=== PATIENT | female | born 1995 | race Caucasian/White ===

== ENCOUNTER 2017-10-09 08:22 | Inpatient (IN) | payer BC ==
[2017-10-09] MEDS ORDERED: RINGERS SOLUTION,LACTATED 1,000 ML IV PRN ×2 (08:39→08:47)
[2017-10-09] MEDS ORDERED: OXYTOCIN/NORMAL SALINE 20 UNIT/1,000 ML RTUINJ IV PRN ×3 (08:39→15:49)
[2017-10-09] MEDS ORDERED: RINGERS SOLUTION,LACTATED 300 ML IV ONE ×2 (08:39→08:47)
[2017-10-09 09:08] LABS: APPEARANCE,URINE TURBID; BILIRUBIN,URINE NEGATIVE (NEGATIVE); COLOR,URINE AMBER; GLUCOSE, URINE NEGATIVE (NEGATIVE); KETONES,URINE NEGATIVE (NEGATIVE); LEUKOCYTE ESTERASE,URINE LARGE (NEGATIVE); NITRITE,URINE NEGATIVE (NEGATIVE); PROTEIN,URINE 30 mg/dL (NEGATIVE); URINE SPECIFIC GRAVITY 1.023; UROBILINOGEN,URINE NEGATIVE mg/dL (<2.0)
[2017-10-09] MEDS ORDERED: OXYTOCIN/NORMAL SALINE 20 UNIT/1,000 ML RTUINJ ONE ×2 (09:11→09:58)
[2017-10-09 09:25] LABS: URINE AMPHETAMINES SCREEN NEGATIVE; URINE BARBITURATES SCREEN NEGATIVE; URINE BENZODIAZEPINES SCREEN NEGATIVE; URINE COCAINE SCREEN NEGATIVE; URINE MARIJUANA (THC) SCREEN NEGATIVE; URINE METHADONE SCREEN NEGATIVE; URINE PHENCYCLIDINE SCREEN NEGATIVE
[2017-10-09 09:29] LABS: ABSOLUTE BASOPHILS # (AUTO) 0.1 10^3/uL (0.0-0.2); ABSOLUTE EOSINOPHILS # (AUTO) 0.1 10^3/uL (0.0-0.6); ABSOLUTE LYMPHOCYTES (AUTO) 2.3 10^3/uL (0.5-4.7); ABSOLUTE MONOCYTES (AUTO) 0.7 10^3/uL (0.1-1.4); ABSOLUTE NEUT (AUTO) 6.3 10^3/uL (1.7-8.2); BASOPHILS % (AUTO) 0.9 % (0-2); EOSINOPHILS % (AUTO) 0.8 % (0-6); HEMATOCRIT 38.7 % (36.0-47.0); HEMOGLOBIN 13.4 g/dL (12.0-15.5); LYMPHOCYTES % (AUTO) 24.2 % (13-45); MEAN CORPUSCULAR HEMOGLOBIN 28.8 pg (27.0-33.4); MEAN CORPUSCULAR HGB CONC 34.6 g/dL (32.0-36.0); MEAN CORPUSCULAR VOLUME 83 fl (80-97); MONOCYTES % (AUTO) 7.9 % (3-13); PLATELET COUNT 249 10^3/uL (150-450); RED BLOOD COUNT 4.66 10^6/uL (3.72-5.28); SEGMENTED NEUTROPHILS % (AUTO) 66.2 % (42-78); TOTAL CELLS COUNTED % (AUTO) 100 %; WHITE BLOOD COUNT 9.5 10^3/uL (4.0-10.5)
[2017-10-09] MEDS ORDERED: EPHEDRINE SULFATE INJ 50 MG/1 ML AMPULE ONE (13:13)
[2017-10-09] MEDS ORDERED: FENTANYL CITRATE INJ/PF 100 MCG/2 ML AMPUL ONE (13:13)
[2017-10-09] MEDS ORDERED: PHENYLEPHRINE HCL INJ/PF 10 MG/1 ML SDV ONE (13:13)
[2017-10-09] MEDS ORDERED: BUPIVACAINE HCL 0.25 % INJ/PF (2.5 MG/1 ML) 30 ML VIAL ONE (13:14)
[2017-10-09] MEDS ORDERED: FENTANYL/BUPIVACAINE/NS/PF 200 MCG/100 ML RTUINJ EPI ONE (13:14)
--- NOTE | 2017-10-09 13:21 | L&D Progress Notes ---
PROGRESS NOTES Datetime Report Generated by CPN: 10/09/2017 13:20 PROGRESS NOTE Impression Other: IOL-stable Procedures: Artificial ROM; Sterile Vag Exam Plan: Continue Present Management Informed Consent Obtained: Induction of Labor; Risks, Benefits and Alternatives Discussed Informed Consent Obtained: Vaginal Delivery; Induction of Labor; Risks, Benefits and Alternatives Discussed Vital Signs : Reviewed; Within Normal Limits Comment: S: reports increased pain with contractions and ready for epidural O: pit @ 12mu/min, VSS, cervix as stated A: IUP @ 40w4- stable, AROM-scant clear fluid tolerated well P: epidural bolus started, reassess as clinically indicated, continue IOL. VAGINAL EXAM Dilatation: 5 Dilatation: 3 Effacement: 90 Effacement: 80 Station: 0 Station: -1 Contractions: 2-3 Contractions: none at admission MEMBRANES Membranes: Ruptured Membranes: Intact FETUS A FHR - Baseline: 125 Monitoring: External US Variability: Moderate 6-25bpm FHR Category: Category I Presentation: Vertex SIGNATURE SIGNATURE: [id number] Assignment: Jacy Scott MD Signature: with User ID: Byron : with User ID: Byron
[2017-10-09] MEDS ORDERED: LIDOCAINE 1% INJ-PF (10 MG/ML) 30 ML SDV ONE (13:42)
[2017-10-09] MEDS ORDERED: LIDOCAINE 2%/EPINEPHRINE INJ 20 ML VIAL ONE (14:02)
[2017-10-09] MEDS ORDERED: MISOPROSTOL 0.2 MG TABLET ONE (15:16)
[2017-10-09] MEDS ORDERED: MISOPROSTOL 0.2 MG TABLET PR PRN (15:49)
[2017-10-09] MEDS ORDERED: DIBUCAINE 1% OINTMENT 28 GM TP PRN (15:49)
[2017-10-09] MEDS ORDERED: PROMETHAZINE HCL INJ 25 MG/1 ML VIAL IV PRN (15:49)
[2017-10-09] MEDS ORDERED: DIPHENHYDRAMINE HCL 25 MG CAPSULE PO PRN (15:49)
[2017-10-09] MEDS ORDERED: ACETAMINOPHEN 650 MG SUPP.RECT PR PRN (15:49)
[2017-10-09] MEDS ORDERED: MAGNESIUM HYDROXIDE SUSP 30 ML UDCUP PO PRN (15:49)
[2017-10-09] MEDS ORDERED: MEASLES,MUMPS&RUBELLA VACC/PF 0.5 ML VIAL SUBCUT PRN (15:49)
[2017-10-09] MEDS ORDERED: GLYCERIN/WITCH HAZEL LEAF 1 EACH MED..PAD TP PRN (15:49)
[2017-10-09] MEDS ORDERED: ACETAMINOPHEN WITH CODEINE #3 TABLET PO PRN (15:49)
[2017-10-09] MEDS ORDERED: DIPH/PERTUSS(ACELL)/TETANUS VAC/PF 0.5 ML SYR (>=10YO) IM PRN (15:49)
[2017-10-09] MEDS ORDERED: BENZOCAINE/MENTHOL AEROSOL SPRAY 56 ML TOP PRN (15:49)
[2017-10-09] MEDS ORDERED: PSEUDOEPHEDRINE HCL 30 MG TABLET PO PRN (15:49)
[2017-10-09] MEDS ORDERED: PROMETHAZINE HCL 25 MG TABLET PO PRN (15:49)
[2017-10-09] MEDS ORDERED: NA PHOS,M-B/NA PHOS,DI-BA (ADULT) 133 ML ENEMA PR PRN (15:49)
[2017-10-09] MEDS ORDERED: PROMETHAZINE HCL 25 MG SUPP.RECT PR PRN (15:49)
[2017-10-09] MEDS ORDERED: ACETAMINOPHEN WITH CODEINE #3 TABLET ONE (15:50)
[2017-10-09] MEDS ORDERED: BENZOCAINE/MENTHOL AEROSOL SPRAY 56 ML ONE (17:26)
--- NOTE | 2017-10-09 18:10 | Admission Physical ---
Datetime Report Generated by CPN: 10/09/2017 18:10 CURRENT ADMISSION Chief Complaint: Scheduled Induction of Labor Indication for Induction: Oligohydramnios Indication for Induction: Term, Intrauterine ; No Active Labor Admit Plan: Admit to Unit; Initiate Labor Induction Protocol ALLERGIES Medication Allergies: No Medication Allergies: No Known Allergies (10/09/2017) Latex: No Latex Allergies OBSTETRICAL HISTORY EDC: 10/05/2017 00:00 : 2 Para: 1 Term: 1 : 0 SAB: 0 IAB: 0 Ectopic: 0 Livin Cesareans: 0 VBACs: 0 Multiple Births: 0 Gestational Diabetes: No Rh Sensitization: No Incompetent Cervix: No ANNETTE: No Infertility: No ART Treatment: No Uterine Anomaly: No IUGR: No Hx Previous C/S: No Macrosomia: No Hx Loss/Stillborn: No PIH: No Hx : No Placenta Previa/Abruption: No Depression/PP Depression: Yes PTL/PROM: No Post Hemorrhage: Yes Current Procedures: Ultrasound Obstetrical History Comments: G1- pp hemmorrhage G2- current, oligo SEE RECORDS Alcohol: No Marijuana : No Cocaine: No Other Illicit Drugs: No Cigarettes: Never Smoker. 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 Heart Disease: No Hosp/Surgery: Yes Autoimmune Disorder: No Anesthetic Complications: No Kidney Disease: No Abnormal Pap Smear: No Neuro/Epilepsy: No Psychiatric Disorders: No Other Medical Diseases: No Hepatitis/Liver Disease: No Significant Family History: No Varicosities/Phlebitis: No Trauma/Violence : No Thyroid Dysfunction: No Medical History Comments: pp depression turned to regular depression [place] teeth removal INFECTIOUS HISTORY Gonorrhea: No Genital Herpes: No Chlamydia: No Tuberculosis: No Syphilis: No Hepatitis: No HIV/AIDS Exposure: No Rash or Viral Illness: No HPV: No PHYSICAL EXAM General: Normal HEENT: Normal Neurologic: Normal Thyroid: Deferred Heart: Normal Lungs: Normal Breast: Deferred Back: Normal Abdomen: Normal Genitourinary Exam: Normal Extremities: Normal DTRs: Normal Pelvic Type: Adequate Vital Signs: Reviewed VAGINAL EXAM Dilatation: 5 Dilatation: 3 Effacement: 90 Effacement: 80 Station: 0 Station: -1 Contraction Comments: 2-3 Contraction Comments: none at admission MEMBRANES Membranes: Ruptured Membranes: Intact FETUS A EGA: 40.4 Monitoring: External US FHR- Baseline: 120 Variability: Moderate 6-25bpm Accelerations: 15X15 Decelerations: None FHR Category: Category I Presentation: Vertex Admit Comment: 22yo at 40+4ega presents for scheduled IOL due to oligo with JAKOB 5.65. Pt has known tachycardia - taking propanolol. GBS negative. Admit to L_D for IOL with pitocin. Pelvis proven to 7#2oz. Anticpate . Bishops 10 - favorable. PLANS FOR LABOR AND DELIVERY Labor and Delivery: None Pain Management: Epidural Feeding Preference: Formula Benefit of Breast Feed Discussed: Yes Circumcision: Yes INFORMED CONSENT Informed Consent Obtained: Induction of Labor; Risks, Benefits and Alternatives Discussed Informed Consent Obtained: Vaginal Delivery; Induction of Labor; Risks, Benefits and Alternatives Discussed Signature: with User ID: [email or web address]
[2017-10-09] MEDS: DOCUSATE SODIUM 100 MG CAPSULE PO SCH (18:13)
[2017-10-09] MEDS: FERROUS SULFATE 325 MG TABLET PO SCH (18:14)
[2017-10-09] MEDS: ACETAMINOPHEN WITH CODEINE #3 TABLET PO PRN (20:06)
[2017-10-09] MEDS: FAMOTIDINE 20 MG TABLET PO SCH (21:41)
[2017-10-09] MEDS: IBUPROFEN 800 MG TABLET PO SCH (21:41)
[2017-10-10] MEDS: ACETAMINOPHEN WITH CODEINE #3 TABLET PO PRN ×6 (00:14→21:00)
[2017-10-10] MEDS: IBUPROFEN 800 MG TABLET PO SCH ×3 (05:19→23:19)
--- NOTE | 2017-10-10 07:50 | Delivery Summary ---
Del Sum A-C Datetime Report Generated by CPN: 10/10/2017 07:50 DELIVERY PERSONNEL DELIVERY PERSONNEL: [id number] Delivery Doctor:: Ariadne Carter CNM Labor and Delivery Nurse:: Narda Esparza RNdealer compliance representative Nurse:: Tamiko Birch RN Freight And Passenger Agent/CERTIFIED ATHLETIC TRAINER: Shon Gamez, BOX FABRICATOR Additional Personnel: : Kendra Gardner RN MATERNAL INFORMATION Delivery Anesthesia: Epidural Medications After Delivery: Pitocin Bolus-Please Comment; Pitocin Drip 20 Units/1000ml NSS; Other-Please Comment Meds After Delivery Comment: cytotec 1000 mg pr Estimated Blood Loss (ml): 250 Maternal Complications: None Provider Comments: pt quickly progressed to complete with urge to push. Began pushing with nurse and after a couple of pushes I was called into room. Pt. continued pushing and quickly delivered a viable baby boy with spontaneous respiratory effort and cry. Baby placed on maternal abdomen, cord allowed to stop pulsating then clamped x2 and cut by FOB. Placenta delivered spontaneously intact (3vc noted, cord blood obtained). Fundus firm and bleeding stable. However large amount of bleeding intermittently. 1000mcg of cytotec given rectally. Bleeding stable. Several episodes of small clots out with massage, fundus firm @ U-3. No lacerations noted on inspection. Mother and baby skin to skin and bonding at this time. LABOR SUMMARY EDC: 10/05/2017 00:00 No. Babies in Womb: 1 Attempted: No Labor Anesthesia: Epidural LABOR INFORMATION Reason for Induction: Oligohydramnios Onset of Labor: 10/09/2017 12:55 Complete Dilatation: 10/09/2017 15:17 Oxytocin: Induction Group B Beta Strep: NEGATIVE Antibiotics # of Doses: 0 Steroids Given: None Reason Steroids Not Administered: Not Applicable MEMBRANES Membranes Rupture Method: Artificial Rupture of Membranes: 10/09/2017 12:55 Length of Rupture (hr): 2.57 Amniotic Fluid Color: Clear Amniotic Fluid Amount: Scant Amniotic Fluid Odor: Normal STAGES OF LABOR Stage 1 hr: 2 Stage 1 min: 22 Stage 2 hr: 0 Stage 2 min: 12 Stage 3 hr: 0 Stage 3 min: 6 Total Time in Labor hr: 2 Total Time in Labor min: 40 VAGINAL DELIVERY Episiotomy: None Laceration #1: None Laceration Extension #1: N/A Laceration Repair: Not Applicable Sponge Count Correct: N/A Sharps Count Correct: N/A BABY A INFORMATION Delivery Date/Time: 10/09/2017 15:29 Method of Delivery: Vaginal Born in Route : No : N/A Forceps: N/A Vacuum Extraction: N/A Shoulder Dystocia : No PRESENTATION/POSITION BABY A Presentation: Cephalic Cephalic Presentation: Vertex Vertex Position: Left Occipital Anterior Breech Presentation: N/A PLACENTA INFORMATION BABY A Placenta Delivery Time : 10/09/2017 15:35 Placenta Method of Delivery: Spontaneous Placenta Status: Delivered SCORES BABY A Heart Rate 1 min: >100 bpm Resp Effort 1 min: Good Cry Reflex Irritability 1 min: Cough or Sneeze or Pulls Away Muscle Tone 1 min: Active Motion Color 1 min: Body [place], Extremities Blue Resuscitation Effort 1 min: Tactile Stimulation SCORE 1 MIN: 9 Heart Rate 5 min: >100 bpm Resp Effort 5 min: Good Cry Reflex Irritability 5 min: Cough or Sneeze or Pulls Away Muscle Tone 5 min: Active Motion Color 5 min: Body [place], Extremities Blue Resuscitation Effort 5 min: Tactile Stimulation SCORE 5 MIN: 9 INFORMATION BABY A Gestational Age at Delivery: 40.4 Gestational Status: Full Term- 39- 40.6 Weeks Infant Outcome : Liveborn Condition : Stable Sex: Male IDENTIFICATION BABY A Infant Verification Date/Time: 10/09/2017 16:00 ID Band Number: [id number] Mother's Name Verified: Yes Infant RN Verifying Infant: Chris Esparza RN Additional Verifying Personnel: Chris Saadia CERTIFIED ATHLETIC TRAINER II WEIGHT/LENGTH BABY A Birthweight (gm): 3160 Weight (lb): 6 Infant Weight (oz): 15 Length (in): 20.50 Infant Length (cm): 52.07 CORD INFORMATION BABY A No. Cord Vessels: 3 Nuchal Cord : Around Neck x1, Loose Cord Blood Taken: Yes-For Eval (Mom's Blood Type - or O+) Suction: None ASSESSMENT BABY A Infant Complications: None Physical Findings at Delivery: Within Normal Limits Respirations: Appears Normal Skin to Skin: Yes Skin to Skin Time (min): 60 Obstetrics Nurse/ALS Called : No Infant Care By: Tiara GARDNER RN Transferred To: Remains with Mother SIGNATURES Assignment: Jacy Scott MD Signature: with User ID: Byron : with User ID: Byron
[2017-10-10 08:19] LABS: HEMATOCRIT 36.1 % (36.0-47.0); HEMOGLOBIN 12.4 g/dL (12.0-15.5); MEAN CORPUSCULAR HEMOGLOBIN 28.8 pg (27.0-33.4); MEAN CORPUSCULAR HGB CONC 34.2 g/dL (32.0-36.0); MEAN CORPUSCULAR VOLUME 84 fl (80-97); PLATELET COUNT 201 10^3/uL (150-450); RED BLOOD COUNT 4.29 10^6/uL (3.72-5.28); RED CELL DISTRIBUTION WIDTH 15.4 % (11.5-14.0); WHITE BLOOD COUNT 12.9 10^3/uL (4.0-10.5)
[2017-10-10] MEDS: DOCUSATE SODIUM 100 MG CAPSULE PO SCH ×2 (09:35→17:27)
[2017-10-10] MEDS: PRENATAL VITAMIN W DHA CAPSULE PO SCH (09:35)
[2017-10-10] MEDS: FAMOTIDINE 20 MG TABLET PO SCH ×2 (09:35→20:59)
[2017-10-10] MEDS: FERROUS SULFATE 325 MG TABLET PO SCH ×2 (09:35→17:27)
[2017-10-10] MEDS: SENNOSIDES/DOCUSATE 8.6-50 MG 1 EACH TABLET PO SCH (09:35)
--- NOTE | 2017-10-10 10:15 | PDOC PROGRESS REPORT ---
Subjective-OB Subjective: Post Delivery Day: 22 year old. Denies any needs at this time Physical Exam (OB) Vital Signs: Temp Pulse Resp BP Pulse Ox 98.1 F 63 16 100/50 L 99 10/10/17 08:06 10/10/17 08:06 10/10/17 08:06 10/10/17 08:06 10/10/17 08:06 Intake & Output 10/09/17 10/10/17 10/11/17 06:59 06:59 06:59 Intake Total 480 Balance 480 Weight 76.8 kg - PIH/Pre-Eclampsia Clonus: Negative - Lochia Lochia Amount: Scant < 10 ml Lochia Color: Rubra/Red - Abdomen Description: Tender, Soft Hernia Present: No Bowel Sounds: Normoactive Flatus Presence: Present Stool: No Fundal Description: Firm, Midline Fundal Height: u/u - u/2 Objective-Diagnostic Laboratory: 10/10/17 07:37 10/09/17 10/10/17 09:17 07:37 WBC 12.9 H RBC 4.29 Hgb 12.4 Hct 36.1 MCV 84 MCH 28.8 MCHC 34.2 RDW 15.4 H Plt Count 201 Blood Type O POSITIVE Antibody Screen NEGATIVE
[2017-10-10] MEDS ORDERED: SERTRALINE HCL 50 MG TABLET PO ONE (20:00)
[2017-10-10] MEDS ORDERED: LORAZEPAM 1 MG TABLET PO ONE (20:00)
[2017-10-11] MEDS: ACETAMINOPHEN WITH CODEINE #3 TABLET PO PRN ×3 (03:45→12:11)
[2017-10-11] MEDS: IBUPROFEN 800 MG TABLET PO SCH (05:07)
[2017-10-11 08:45] VITALS: BP 111/61
--- NOTE | 2017-10-11 09:29 | PDOC PROGRESS REPORT ---
Subjective-OB Subjective: Post Delivery Day: 22 year old. Denies any needs at this time Doing well, asking for rx for zoloft so she can continue due to PPD, baby needs circ, bottle feeding, cramping relieved with pain meds Physical Exam (OB) Vital Signs: Temp Pulse Resp BP Pulse Ox 97.9 F 85 15 111/61 99 10/11/17 08:16 10/11/17 08:16 10/11/17 08:16 10/11/17 08:16 10/11/17 08:16 Intake & Output 10/10/17 10/11/17 10/12/17 06:59 06:59 06:59 Intake Total 480 Balance 480 Weight 76.8 kg - PIH/Pre-Eclampsia Clonus: Negative Headache: Absent - Lochia Lochia Amount: Scant < 10 ml Lochia Color: Rubra/Red - Abdomen Description: Tender, Soft, Round Hernia Present: No Fundal Description: Firm Fundal Height: u/u - u/2 Objective-Diagnostic Laboratory: 10/10/17 07:37 Assessment and Plan(PN) - Assessment and Plan (1) Delivery normal Is this a current diagnosis for this admission?: Yes (2) Oligohydramnios in third trimester Qualifiers: Fetus number: single or unspecified fetus Qualified Code(s): O41.03X0 - Oligohydramnios, third trimester, not applicable or unspecified Is this a current diagnosis for this admission?: Yes - Time Spent with Patient Time with patient: Less than 15 minutes Medications reviewed and adjusted accordingly: Yes - Disposition Anticipated Discharge: Home Within: Other - home today
--- NOTE | 2017-10-11 09:33 | PDOC DISCHARGE SUMMARY ---
Final Diagnosis Discharge Date: 10/11/17 - Final Diagnosis (1) Delivery normal Is this a current diagnosis for this admission?: Yes (2) Oligohydramnios in third trimester Is this a current diagnosis for this admission?: Yes Discharge Data - Discharge Medication Prescriptions: Acetaminophen with Codeine [Tylenol #3 Tablet] 1 each PO Q4HP PRN #10 tablet PRN Reason: Sertraline HCl [Zoloft 50 mg Tablet] 50 mg PO DAILY #30 tablet Home Medications: Fexofenadine HCl [Valerie] 1 tab PO DAILY 10/09/17 Pnv 102/Iron/Folate 1/Dss/Dha [Vitafol Fe+ Docusate Combo Pck] 1 tab PO DAILY Propranolol HCl [Inderal 20 mg Tablet] 20 mg PO Q12 10/09/17 Acetaminophen with Codeine [Tylenol #3 Tablet] 1 each PO Q4HP PRN #10 tablet Sertraline HCl [Zoloft 50 mg Tablet] 50 mg PO DAILY #30 tablet 10/11/17 Gestational Age: 40.4 Reason(s) for Admission: Onset of Labor Procedures: Ultrasound Intrapartum Procedure(s): Spontaneous Vaginal Delivery - [place] Data Baby 1 Male at 1 minute: 9 at 5 minutes: 9 Weight: 3.147 kg Home with Mother: Yes Complications: No - Diagnosis Test Laboratory: Temp Pulse Resp BP Pulse Ox 97.9 F 85 15 111/61 99 10/11/17 08:16 10/11/17 08:16 10/11/17 08:16 10/11/17 08:16 10/11/17 08:16 10/09/17 10/09/17 10/10/17 08:30 09:17 07:37 RBC 4.66 4.29 Hgb 13.4 12.4 Hct 38.7 36.1 Urine Opiates Screen NEGATIVE - Discharge information/Instructions Discharge Activity: Activity As Tolerated, Pelvic Rest Discharge Diet: As Tolerated, Regular Disposition: HOME, SELF-CARE Follow up with: [facility] in: 4, Weeks
[2017-10-11] MEDS ORDERED: SERTRALINE HCL 50 MG TABLET PO SCH (10:00)
[2017-10-11] MEDS: FAMOTIDINE 20 MG TABLET PO SCH (11:06)
[2017-10-11] MEDS: DOCUSATE SODIUM 100 MG CAPSULE PO SCH (11:07)
[2017-10-11] MEDS: FERROUS SULFATE 325 MG TABLET PO SCH (11:07)
[2017-10-11] MEDS: PRENATAL VITAMIN W DHA CAPSULE PO SCH (11:08)
[2017-10-11] MEDS: SENNOSIDES/DOCUSATE 8.6-50 MG 1 EACH TABLET PO SCH (11:08)
== END 2017-10-11 12:57 | disposition home or self-care (01) | DRG 775 ==
LOC: LR 08:22 → 2S 18:00
PROVIDERS: ADMIT Student in an Organized Health Care Education/Training Program; ATTEND Student in an Organized Health Care Education/Training Program
PROC: 10E0XZZ Delivery of Products of Conception, External Approach (ICD-10-PCS; principal; 2017-10-09)
PROC: 10907ZC Drainage of Amniotic Fluid, Therapeutic from Products of Conception, Via Natural or Artificial Opening (ICD-10-PCS; 2017-10-09)
PROC: 4A1HXCZ Monitoring of Products of Conception, Cardiac Rate, External Approach (ICD-10-PCS; 2017-10-09)
DX: O41.03X0 Oligohydramnios, third trimester, not applicable or unspecified (principal); O99.344 Other mental disorders complicating childbirth; F32.9 Major depressive disorder, single episode, unspecified; O69.81X0 Labor and delivery complicated by cord around neck, without compression, not applicable or unspecified; Z3A.40 40 weeks gestation of pregnancy; Z37.0 Single live birth
CPT/HCPCS: 36415; 59025; 80307; 81005; 85025; 85027; 86592; 86850; 86900; 86901; 94760; J2370; J2590; J3010; J3490

== ENCOUNTER 2019-08-01 21:40 | Emergency (ER) | payer BC ==
--- NOTE | 2019-08-01 21:58 | ER Document Report ---
ED Medical Screen (RME) - General Chief Complaint: Lower Abdominal Pain Stated Complaint: ABDOMINAL PAIN Time Seen by Provider: 08/01/19 21:51 Primary Care Provider: MICHAEL AMARO MD [Primary Care Provider] - Follow up as needed Notes: 24-year-old female with no past medical history presents the emergency department with abdominal pain x1 week. Patient states that she has had lower abdominal pain bilateral and every time she eats she has diarrhea. No fevers or chills, no vomiting, no urinary symptoms, no abnormal vaginal discharge. Exam: Well-appearing no acute distress, lungs clear to auscultation all ferreira, S1-S2 heard with regular cardiac rate and rhythm, abdominal exam limited but patient had some tenderness to palpation when pressing with the stethoscope listening to normal bowel sounds I have greeted and performed a rapid initial assessment of this patient. A comprehensive ED assessment and evaluation of the patient, analysis of test results and completion of medical decision making process will be conducted by an additional ED providers. TRAVEL OUTSIDE OF THE [place] IN LAST 30 DAYS: No - Related Data Allergies/Adverse Reactions: No Known Allergies Allergy (Unverified 10/09/17 08:37) Past Medical History - Social History Frequency of alcohol use: None Drug Abuse: None Physical Exam - Vital signs Vitals: Temp Pulse Resp BP Pulse Ox 98.1 F 95 18 115/66 99 08/01/19 21:45 08/01/19 21:45 08/01/19 21:45 08/01/19 21:45 08/01/19 21:45 Course - Vital Signs Vital signs: Temp Pulse Resp BP Pulse Ox 98.1 F 95 18 115/66 99 08/01/19 21:45 08/01/19 21:45 08/01/19 21:45 08/01/19 21:45 08/01/19 21:45 Doctor's Discharge - Discharge Referrals: MICHAEL AMARO MD [Primary Care Provider] - Follow up as needed
[2019-08-01 22:39] LABS: ABSOLUTE EOSINOPHILS # (AUTO) 0.2 10^3/uL (0.0-0.6); ABSOLUTE LYMPHOCYTES (AUTO) 2.5 10^3/uL (0.5-4.7); ABSOLUTE MONOCYTES (AUTO) 0.7 10^3/uL (0.1-1.4); ABSOLUTE NEUT (AUTO) 6.1 10^3/uL (1.7-8.2); BASOPHILS % (AUTO) 0.5 % (0-2); EOSINOPHILS % (AUTO) 1.6 % (0-6); HEMATOCRIT 44.8 % (36.0-47.0); HEMOGLOBIN 15.4 g/dL (12.0-15.5); LYMPHOCYTES % (AUTO) 26.1 % (13-45); MEAN CORPUSCULAR HEMOGLOBIN 29.1 pg (27.0-33.4); MEAN CORPUSCULAR HGB CONC 34.3 g/dL (32.0-36.0); MEAN CORPUSCULAR VOLUME 85 fl (80-97); MONOCYTES % (AUTO) 7.4 % (3-13); PLATELET COUNT 367 10^3/uL (150-450); RED BLOOD COUNT 5.29 10^6/uL (3.72-5.28); RED CELL DISTRIBUTION WIDTH 14.1 % (11.5-14.0); SEGMENTED NEUTROPHILS % (AUTO) 64.4 % (42-78); TOTAL CELLS COUNTED % (AUTO) 100 %; WHITE BLOOD COUNT 9.5 10^3/uL (4.0-10.5)
[2019-08-01 22:57] LABS: ALBUMIN 4.9 g/dL (3.5-5.0); ALKALINE PHOSPHATASE 88 U/L (38-126); ANION GAP 11 (5-19); ASPARTATE AMINO TRANSFERASE 21 U/L (14-36); BILIRUBIN,DIRECT 0.1 mg/dL (0.0-0.4); BILIRUBIN,TOTAL 0.3 mg/dL (0.2-1.3); BLOOD UREA NITROGEN 14 mg/dL (7-20); CALCIUM 9.6 mg/dL (8.4-10.2); CARBON DIOXIDE 23 mmol/L (22-30); CHLORIDE 109 mmol/L (98-107); GLUCOSE 87 mg/dL (75-110); POTASSIUM 4.2 mmol/L (3.6-5.0); TOTAL PROTEIN 8.1 g/dL (6.3-8.2)
[2019-08-01 23:04] LABS: APPEARANCE,URINE SLIGHTLY-CLOUDY; BILIRUBIN,URINE NEGATIVE (NEGATIVE); COLOR,URINE YELLOW; GLUCOSE, URINE NEGATIVE (NEGATIVE); KETONES,URINE NEGATIVE (NEGATIVE); LEUKOCYTE ESTERASE,URINE NEGATIVE (NEGATIVE); NITRITE,URINE NEGATIVE (NEGATIVE); PROTEIN,URINE NEGATIVE (NEGATIVE); URINE SPECIFIC GRAVITY 1.023; UROBILINOGEN,URINE NEGATIVE mg/dL (<2.0)
--- NOTE | 2019-08-02 00:14 | ER Document Report ---
ED General - General Chief Complaint: Lower Abdominal Pain Stated Complaint: ABDOMINAL PAIN Time Seen by Provider: 08/01/19 21:51 Primary Care Provider: MICHAEL AMARO MD [ACTIVE STAFF] - Follow up as needed Notes: 24-year-old female presents to the emergency department with a complaint of lower abdominal pain for the past week. She also notes diarrhea and increasing pain when she eats. She denies fever, nausea vomiting, or hematochezia. She takes no medications and is otherwise healthy 24-year-old. Her last meal today include steak, mashed potatoes, gravy. TRAVEL OUTSIDE OF THE [place] IN LAST 30 DAYS: No - Related Data Allergies/Adverse Reactions: No Known Allergies Allergy (Unverified 10/09/17 08:37) Past Medical History - Social History Smoking Status: Never Smoker Frequency of alcohol use: None Drug Abuse: None Family History: Reviewed & Not Pertinent Patient has suicidal ideation: No Patient has homicidal ideation: No Review of Systems - Review of Systems Notes: Constitutional: Negative for fever. HENT: Negative for sore throat. Eyes: Negative for visual changes. Cardiovascular: Negative for chest pain. Respiratory: Negative for shortness of breath. Gastrointestinal: + abdominal pain,+ diarrhea. Genitourinary: Negative for dysuria. Musculoskeletal: Negative for back pain. Skin: Negative for rash. Neurological: Negative for headaches, weakness or numbness. 10 point ROS negative except as marked above and in HPI. Physical Exam - Vital signs Vitals: Temp Pulse Resp BP Pulse Ox 98.1 F 95 18 115/66 99 08/01/19 21:45 08/01/19 21:45 08/01/19 21:45 08/01/19 21:45 08/01/19 21:45 - Notes Notes: PHYSICAL EXAMINATION: GENERAL: Well-appearing, well-nourished female in no acute distress HEAD: Atraumatic, normocephalic. EYES: Pupils equal round reactive to light and accommodation, extraocular motions intact. ENT: Normal NECK: No lymphadenopathy and no stiffness. LUNGS: Clear, no wheezes rales or rhonchi HEART: Regular rate and rhythm no murmur gallop or rub Gastrointestinal: Abdomen is soft active, nontender, no masses, normal bowel sounds, no guarding, no rebound, no hepatosplenomegaly. EXTREMITIES: no pitting or edema. No cyanosis. NEUROLOGICAL: No focal neurological deficits. Moves all extremities spo ntaneously and on command. PSYCH: Normal SKIN: Warm, Dry, normal turgor, no rashes or lesions noted. Course - Re-evaluation Re-evalutation: 08/02/19 00:15 I reviewed labs and found that they were unremarkable. I discussed the patient GI upset and the reasons to modify her diet and use antispasmodic medication. She is encouraged to reduce intake of foods which are difficult to digest and to use dicyclomine for pain and spasm. Follow-up with your primary care doctor as needed patient is in agreement with this plan. - Vital Signs Vital signs: Temp Pulse Resp BP Pulse Ox 98.0 F 77 18 107/71 99 08/02/19 00:50 08/02/19 00:50 08/02/19 00:50 08/02/19 00:50 08/02/19 00:50 - Laboratory Result Diagrams: 08/01/19 22:23 08/01/19 22:23 Laboratory results interpreted by me: 08/01/19 08/01/19 22:23 22:23 RBC 5.29 H RDW 14.1 H Chloride 109 H 08/02/19 00:15 I have reviewed laboratory data and used this information in the treatment decisions regarding the patient. Discharge - Discharge Clinical Impression: Enteritis Condition: Good Disposition: HOME, SELF-CARE Instructions: Antispasmodics ([facility]) Prescriptions: Dicyclomine HCl [Bentyl 10 mg Capsule] 1 cap PO TID #30 cap Referrals: MICHAEL AMARO MD [ACTIVE STAFF] - Follow up as needed
[2019-08-02] MEDS ORDERED: KETOROLAC TROMETHAMINE 60 MG/2 ML SDV IM ONE (00:31)
[2019-08-02 00:57] VITALS: BP 107/71
== END 2019-08-02 00:57 | disposition home or self-care (01) ==
LOC: ER 21:40
DX: K52.9 Noninfective gastroenteritis and colitis, unspecified (principal); R10.30 Lower abdominal pain, unspecified
CPT/HCPCS: 36415; 83690; 85025; 81025; 80053; 81001; J1885